=== PATIENT | male | born 1970 | race African-American/Black ===

== ENCOUNTER 2022-02-22 15:15 | Emergency (ER) | payer SELFPAY ==
[~2022-02-22] VITALS: Ht 167.6 cm; Wt 78.0 kg
[2022-02-22 16:21] VITALS: BP 150/87
== END 2022-02-22 16:23 | disposition home or self-care (01) ==
LOC: ER 16:17
DX: M54.12 Radiculopathy, cervical region (principal); R03.0 Elevated blood-pressure reading, without diagnosis of hypertension
CPT/HCPCS: 99283